=== PATIENT | female | born 1985 | race Caucasian/White ===

== ENCOUNTER 2017-11-21 05:36 | Day surgery (SDC) | payer BC ==
[~2017-11-21] VITALS: Ht 162.6 cm; Wt 65.8 kg
[~2017-11-21 05:36] MED LIST: BUSPAR10 MG PO; DAILY VALUE1 EACH PO; FLONASE SENSIM9.9 ML BOTH NARES; LEXAPRO20 MG PO; ZYRTEC10 M2 PO
[2017-11-21 07:00] VITALS: BP 108/71
[2017-11-21 08:35] VITALS: BP 108/65
[2017-11-21 09:36] VITALS: BP 113/76
== END 2017-11-21 09:45 | disposition home or self-care (01) ==
LOC: SDC 05:36
PROC: 0UBC7ZZ Excision of Cervix, Via Natural or Artificial Opening (ICD-10-PCS; principal; 2017-11-21)
DX: D06.7 Carcinoma in situ of other parts of cervix (principal); J45.909 Unspecified asthma, uncomplicated; F41.9 Anxiety disorder, unspecified; F32.9 Major depressive disorder, single episode, unspecified; Z80.41 Family history of malignant neoplasm of ovary; F17.210 Nicotine dependence, cigarettes, uncomplicated; Z82.49 Family history of ischemic heart disease and other diseases of the circulatory system; Z88.5 Allergy status to narcotic agent
CPT/HCPCS: 88305; 88307; J0131; J0330; J1100; J1885; J2250; J2405; J3010; Q0175